=== PATIENT | female | born 1975 | race Caucasian/White ===

== ENCOUNTER 2017-05-08 09:40 | Emergency (ER) | payer BC ==
[2017-05-08 10:45] LABS: Hematocrit 42 % (35-47); Mean Corpuscular HGB Conc 34 g/dl (31-36); Mean Corpuscular Hemoglobin 31 pg (27-31); Mean Corpuscular Volume 92 fL (80-97); Mean Platelet Volume 9 um3 (7.4-10.4); Red Blood Count 4.53 10^6/ul (4.0-5.4); Red Cell Distribution Width 13 % (10.5-15); White Blood Count 7.8 10^3/ul (3.5-10.8)
[2017-05-08 11:08] LABS: BUN/Creatinine Ratio 7.1 (8-20); C Reactive Protein 1.61 mg/L (< 5.00); Calcium 9.2 mg/dL (8.6-10.3); EGFR Non-African American 91.8 (>60); Globulin 2.8 g/dL (2-4); Potassium 4.2 mmol/L (3.5-5.0); Total Bilirubin 1.1 mg/dL (0.2-1.0); Total Protein 6.8 g/dL (6.4-8.9)
[2017-05-08 11:14] LABS: Urine Bacteria 1+ (Absent); Urine Bilirubin Negative (Negative); Urine Glucose Negative (Negative); Urine Nitrite Negative (Negative)
[2017-05-08 12:11] VITALS: BP 129/76
--- NOTE | 2017-05-08 17:55 | ED ---
Pantera Wagner Claudia, scribed for Boston Lentz MD on 05/08/17 at 1004 . Neurological HPI - HPI Summary HPI Summary: 41 year old female presents to [facility] ED post Sz this am. Pt has a PMHx of Epilepsy , Narcolepsy, Asthma. The pt notes that she usually has absent Sz however this is her second Sz in which she experienced LOC. Pt notes the first being in late January. Pt notes that she and her just moved to [place] and are trying to get established with a Neurologist here but are having a difficult time with finding an appt before July 2017. Pt notes she takes Lamictal 200mg 2x a day for her Sz. Pt denies bitting her tongue, NVD, incontinence and any other associated Sz. Pt Sz was not witnessed and the exact length of the Sz is unknown. The pt notes that she felt it coming on and woke up on the floor. Pt also notes intermittent cough for the past year in which she has had XR and work -up within nml limits. Pt denies any aggravating or alleviating factors, pt states she is back to her nml state in the ED. - History of Current Complaint Chief Complaint: EDSeizure Stated Complaint: SEIZURE/SYNCOPE Time Seen by Provider: 05/08/17 09:53 Hx Obtained From: Patient Onset/Duration: Sudden Onset, Resolved Timing: Intermittent Episodes Lasting: - unsure lenth Pain Intensity: 0 Syncope Context: Unwitnessed, Loss of Consciousness: Yes Frequency: Episodes x___ - 1 Seizure Character: Tonic Associated Signs and Symptoms: Positive: Seizure. Negative: Nausea/Vomiting, Chest Pain, Shortness of Breath - Allergy/Home Medications Allergies/Adverse Reactions: Allergies Allergy/AdvReac Type Severity Reaction Status Date / Time No Known Allergies Allergy Verified 05/08/17 10:32 PMH/Surg Hx/FS Hx/Imm Hx Previously Healthy: Yes Endocrine/Hematology History: Reports: Hx Diabetes - DM type 1 Respiratory History: Reports: Hx Asthma, Other Respiratory Problems/Disorders - Narcolepsy Neurological History: Reports: Hx Seizures Infectious Disease History: No Infectious Disease History: Denies: Traveled Outside the [place] in Last 30 Days - Family History Known Family History: Positive: Other Family History: Pancreatic CA, Ovarian CA, Breast CA - Social History Occupation: Employed Full-time Lives: With Family Alcohol Use: Occasionally Hx Substance Use: No Substance Use Type: Reports: None Hx Tobacco Use: No Smoking Status (MU): Former Smoker Review of Systems Constitutional: Negative Eyes: Negative ENT: Negative Cardiovascular: Negative Negative: Chest Pain Positive: Cough. Negative: Shortness Of Breath Gastrointestinal: Negative Negative: Vomiting, Diarrhea, Nausea Genitourinary: Negative Negative: incontinence Musculoskeletal: Negative Skin: Negative Neurological: Other - Sz Psychological: Normal All Other Systems Reviewed And Are Negative: Yes Physical Exam - Summary Physical Exam Summary: VITAL SIGNS: Reviewed. GENERAL: Patient is a well-developed and nourished female who is lying comfortable in the stretcher. Patient is not in any acute respiratory distress. HEAD AND FACE: No signs of trauma. No ecchymosis, hematomas or skull depressions. No sinus tenderness. EYES: PERRLA, EOMI x 2, No injected conjunctiva, no nystagmus. EARS: Hearing grossly intact. Ear canals and tympanic membranes are within normal limits. MOUTH: Oropharynx within normal limits. NECK: Supple, trachea is midline, no adenopathy, no JVD, no carotid bruit, no c- spine tenderness, neck with full ROM. CHEST: Symmetric, no tenderness at palpation LUNGS: Clear to auscultation bilaterally. No wheezing or crackles. CVS: Regular rate and rhythm, S1 and S2 present, no murmurs or gallops appreciated. ABDOMEN: Soft, non-tender. No signs of distention. No rebound no guarding, and no masses palpated. Bowel sounds are normal. EXTREMITIES: FROM in all major joints, no edema, no cyanosis or clubbing. NEURO: Alert and oriented x 3. No acute neurological deficits. Speech is normal and follows commands. SKIN: Dry and warm Triage Information Reviewed: Yes Vital Signs On Initial Exam: Initial Vitals Temp Pulse Resp BP Pulse Ox 98.3 F 100 20 132/73 97 05/08/17 09:42 05/08/17 09:42 05/08/17 09:42 05/08/17 09:42 05/08/17 09:42 Vital Signs Reviewed: Yes Diagnostics - Vital Signs Vital Signs Temp Pulse Resp BP Pulse Ox 05/08/17 09:42 98.3 F 100 20 132/73 97 - Laboratory Lab Results: Lab Results 05/08/17 05/08/17 05/08/17 Range/Units 10:20 10:25 10:25 WBC 7.8 (3.5-10.8) 10^3/ul RBC 4.53 (4.0-5.4) 10^6/ul Hgb 14.0 (12.0-16.0) g/dl Hct 42 (35-47) % MCV 92 (80-97) fL MCH 31 (27-31) pg MCHC 34 (31-36) g/dl RDW 13 (10.5-15) % Plt Count 333 (150-450) 10^3/ul MPV 9 (7.4-10.4) um3 Neut % (Auto) 64.8 (38-83) % Lymph % (Auto) 22.6 L (25-47) % [place] % (Auto) 6.6 (1-9) % Eos % (Auto) 4.7 (0-6) % Baso % (Auto) 1.3 (0-2) % Absolute Neuts (auto) 5.0 (1.5-7.7) 10^3/ul Absolute Lymphs (auto) 1.8 (1.0-4.8) 10^3/ul Absolute Monos (auto) 0.5 (0-0.8) 10^3/ul Absolute Eos (auto) 0.4 (0-0.6) 10^3/ul Absolute Basos (auto) 0.1 (0-0.2) 10^3/ul Absolute Nucleated RBC 0 10^3/ul Nucleated RBC % 0.1 Sodium 134 (133-145) mmol/L Potassium 4.2 (3.5-5.0) mmol/L Chloride 101 (101-111) mmol/L Carbon Dioxide 27 (22-32) mmol/L Anion Gap 6 (2-11) mmol/L BUN 5 L (6-24) mg/dL Creatinine 0.70 (0.51-0.95) mg/dL Est GFR ( Amer) 118.0 (>60) Est GFR (Non-Af Amer) 91.8 (>60) BUN/Creatinine Ratio 7.1 L (8-20) Glucose 199 H (70-100) mg/dL Calcium 9.2 (8.6-10.3) mg/dL Total Bilirubin 1.10 H (0.2-1.0) mg/dL AST 12 L (13-39) U/L ALT 10 (7-52) U/L Alkaline Phosphatase 83 (34-104) U/L C-Reactive Protein 1.61 (< 5.00) mg/L Total Protein 6.8 (6.4-8.9) g/dL Albumin 4.0 (3.2-5.2) g/dL Globulin 2.8 (2-4) g/dL Albumin/Globulin Ratio 1.4 (1-3) Urine Color Yellow Urine Appearance Clear Urine pH 8.0 (5-9) Ur Specific [place] 1.014 (1.010-1.030) Urine Protein 1+(30 mg/dl) H (Negative) Urine Ketones Negative (Negative) Urine Blood Negative (Negative) Urine Nitrate Negative (Negative) Urine Bilirubin Negative (Negative) Urine Urobilinogen Negative (Negative) Ur Leukocyte Esterase Negative (Negative) Urine WBC (Auto) Trace(0-5/hpf) (Absent) Urine RBC (Auto) Trace(0-2/hpf) (Absent) Ur Squamous Epith Cells Present H (Absent) Urine Bacteria 1+ H (Absent) Urine Glucose Negative (Negative) Result Diagrams: 05/08/17 10:25 05/08/17 10:25 Lab Statement: Any lab studies that have been ordered have been reviewed, and results considered in the medical decision making process. - EKG 10:18 Cardiac Rate: NL EKG Rhythm: Sinus Rhythm - 85 beats/min ST Segment: Normal NIH Scale - NIH Scale Level of Consciousness: Alert/Keenly Responsive Ask Patient the Month and His/Her Age: Both Correct Ask Pt to Open/Close Eyes and Concession Cashier/Release Non-Paretic Hand: Both Correctly Best Gaze (Only Horizontal Eye Movement): Normal Visual Field Testing: No Visual Loss Facial Paresis-Pt to Smile & Close Eyes or Grimace Symmetry: Normal/Symmetrical Motor Function - Right Arm: No Drift-Holds 10 Seconds Motor Function - Left Arm: No Drift-Holds 10 Seconds Motor Function - Right Leg: No Drift-Holds 10 Seconds Motor Function - Left Leg: No Drift-Holds 10 Seconds Limb Ataxia-Must be out of Proportion to Weakness Present: Absent Sensory (Use Pinprick to Test Arms/Legs/Trunk/Face): Normal Best Language (Describe Picture, Name Items): No Aphasia Dysarthria (Read Several Words): Normal Extinction and Inattention: No Abnormality Total Score: 0 Course/Dx - Course Assessment/Plan: 41 year old female presents to [facility] ED post Sz this am. Pt has a PMHx of Epilepsy, Narcolepsy, Asthma. The pt notes that she usually has absent Sz however this is her second Sz in which she experienced LOC. Pt notes the first being in late January. Pt notes that she and her just moved to [place] and are trying to get established with a Neurologist here but are having a difficult time with finding an appt before July 2017. Pt notes she takes Lamictal 200mg 2x a day for her Sz. Pt denies bitting her tongue, NVD, incontinence and any other associated Sz. Pt Sz was not witnessed and the exact length of the Sz is unknown. The pt notes that she felt it coming on and woke up on the floor. Pt also notes intermittent cough for the past year in which she has had XR and work-up within nml limits. Pt denies any aggravating or alleviating factors, pt states she is back to her nml state in the ED. Blood work with in normal limits except glucose of 199 this is consist with her type 1 DM. Urine analysis neg for UTI. I discussed the case with dr. Romero whom recommends to increase her night time lamictal to 250mg. The pt will also be seeing Dr. Ibrahim on June 10. The pt was given a Rx for lamicatal 50mg sine the pt did not have 50mg pills. The pt is Hemodynamically stable Alert and Oriented x3. - Differential Dx Differential Diagnoses Neuro: Positive: Seizure Disorder - Diagnoses Provider Diagnoses: Seizure - Physician Notifications Discussed Care Of Patient With: Consulted with Dr. Romero, whom will see the pt in his office. - Dr. Romero also recommened increasing Lamictal to 250mg at night. Time Discussed With Above Provider: 11:31 Discharge - Discharge Plan Condition: Stable Disposition: HOME Prescriptions: lamoTRIgine TAB(*) [Lamictal TAB(*)] 50 mg PO BEDTIME #30 tab Patient Education Materials: Recurrent Seizures in Adults (ED) Referrals: Elvin Romero MD [Medical Doctor] - (Please follow-up with you appointment on May AT 10:30AM. ) The documentation as recorded by the Pantera angel Claudia accurately reflects the service I personally performed and the decisions made by me, Boston Lentz MD.
== END 2017-05-08 11:50 | disposition home or self-care (01) ==
LOC: ED 09:40
DX: R56.9 Unspecified convulsions (principal); R05 Cough; Z87.891 Personal history of nicotine dependence
CPT/HCPCS: 36415; 80053; 81003; 81015; 85025; 86140; 87086; 93005; 99282

== ENCOUNTER 2018-05-24 12:19 | Emergency (ER) | payer BC ==
[2018-05-24] MEDS ORDERED: NS 0.9% 1000 ML* 1,000 ML IV ONE (13:01)
--- NOTE | 2018-05-24 13:01 | ED ---
Throat Pain/Nasal Congestion - HPI Summary HPI Summary: This is scribe Chavo Johnsain documenting for attending Dr. Boston Lentz MD. A 42 y/o female presents to ED c/o slight double vision since waking up this morning around 0830. Currently, the patient is in no acute pain. According to the patient, she woke up this morning with her vision being in and out/double vision. She stated that the symptoms were not too apparent when she first woke up, but it became noticeable around 1000. She has noticed no changes in her health within the last couple days, however last night she woke up because she had high blood pressure of 350. She did have similar symptom when her blood pressure was low, but her symptoms today are for sure different. The symptoms are "getting better than getting worse". In the ED room, she could not tell if the TV was double, however, she noted that it is "not right" and that it is a little off (doesn't see two TV's). Using 's glasses which was turned horizontally and vertically the patient noted that they "off". She denies any headaches, SOB, CP, fever, chills, neck pain or infection within the last couple weeks, however, she has had a runny nose but that comes every morning. The runny nose goes away as she progresses through the day. In the ED room upon holding an instrument, her right eye was covered where she saw no change, however, when covering her left eye she still see double. She noted that she has been near sided since the 5th grade. Last time she saw a ammunition supervisor was in October 2017 where everything was good with no/slight change in prescriptions. Possible measurements of her eyes were -7 and -7.25 (not entirely sure). She continued to note that she always felt that her left eye was different than her right eye for years. She saw five ophthalmologists who all said there was nothing wrong with it, however, this past she felt it was especially bad to the point of where it kind of hurts. Current ammunition supervisor is Dr. Leggett. Doesn't have menstrual periods anymore. PMHx of epilepsy, narcolepsy, Type I DM (since 10 y/o, has insulin pump). Continuous glucose monitoring with current sugar is 158 and rising. Fundoscopic Exam: Exam was difficult to identify blood vessels. Eyes have more red buchanan color. - History of Current Complaint Chief Complaint: EDEyeProblem Time Seen by Provider: 05/24/18 12:40 Hx Obtained From: Patient Onset/Duration: Sudden Onset, Lasting Hours, Still Present Associated Signs And Symptoms: Positive: Negative Cough: None - Allergies/Home Medications Allergies/Adverse Reactions: Allergies Allergy/AdvReac Type Severity Reaction Status Date / Time No Known Allergies Allergy Verified 05/24/18 12:24 Home Medications: Home Medications Albuterol HFA INHALER* [Ventolin HFA Inhaler*] 1 - 2 puff INH Q6H PRN 05/24/18 [ History Confirmed 05/24/18] Armodafinil 150 mg PO DAILY 05/24/18 [History Confirmed 05/24/18] Dextroamphetamine/Amphetamine [Adderall 5 mg Tablet] 5 mg PO DAILY 05/24/18 [ History Confirmed 05/24/18] Insulin Aspart [Novolog] 1 unit SUBCUT DAILY 05/24/18 [History Confirmed ] lamoTRIgine TAB(*) [Lamictal TAB(*)] 100 mg PO BEDTIME 05/24/18 [History Confirmed 05/24/18] lamoTRIgine [Lamotrigine ER] 200 mg PO BID 05/24/18 [History Confirmed 05/24/18] PMH/Surg Hx/FS Hx/Imm Hx Endocrine/Hematology History: Reports: Hx Diabetes - DM type 1 Cardiovascular History: Denies: Hx Hypertension, Hx Pacemaker/ICD Respiratory History: Reports: Hx Asthma, Other Respiratory Problems/Disorders - Narcolepsy History: Denies: Hx Renal Disease Sensory History: Denies: Hx Hearing Aid Neurological History: Reports: Hx Seizures Psychiatric History: Denies: Hx Panic Disorder - Surgical History Surgery Procedure, Year, and Place: HYSTERECTOMY Infectious Disease History: No Infectious Disease History: Denies: Traveled Outside the [place] in Last 30 Days - Family History Known Family History: Positive: Diabetes Negative: Hypertension Family History: Pancreatic CA, Ovarian CA, Breast CA - Social History Alcohol Use: Occasionally Alcohol Amount: socially Hx Substance Use: No Substance Use Type: Reports: None Hx Tobacco Use: No Smoking Status (MU): Former Smoker Review of Systems Positive: Other - NEGATIVE: Infection in past couple weeks.. Negative: Fever, Chills Positive: Blurred Vision - In the morning around 0830 upon waking up., Other - POSITIVE: Double vision. ENT: Other - POSITIVE: Runny nose (normal, everyday). Resolves during day. Negative: Chest Pain Negative: Shortness Of Breath Positive: Other - NEGATIVE: Neck pain. Negative: Headache All Other Systems Reviewed And Are Negative: Yes Physical Exam - Summary Physical Exam Summary: VITAL SIGNS: Reviewed. GENERAL: Patient is a well-developed and nourished female who is lying comfortable in the stretcher. Patient is not in any acute respiratory distress. HEAD AND FACE: No signs of trauma. No ecchymosis, hematomas or skull depressions. No sinus tenderness. EYES: PERRLA, EOMI x 2, No injected conjunctiva, no nystagmus. EARS: Hearing grossly intact. Ear canals and tympanic membranes are within normal limits. MOUTH: Oropharynx within normal limits. NECK: Supple, trachea is midline, no adenopathy, no JVD, no carotid bruit, no c- spine tenderness, neck with full ROM. CHEST: Symmetric, no tenderness at palpation LUNGS: Clear to auscultation bilaterally. No wheezing or crackles. CVS: Regular rate and rhythm, S1 and S2 present, no murmurs or gallops appreciated. ABDOMEN: Soft, non-tender. No signs of distention. No rebound no guarding, and no masses palpated. Bowel sounds are normal. EXTREMITIES: FROM in all major joints, no edema, no cyanosis or clubbing. NEURO: Alert and oriented x 3. No acute neurological deficits. Speech is normal and follows commands. SKIN: Dry and warm NIH: 0 GCS: 15 Triage Information Reviewed: Yes Vital Signs On Initial Exam: Initial Vitals Temp Pulse Resp BP Pulse Ox 99.7 F 107 15 150/80 99 05/24/18 12:22 05/24/18 12:22 05/24/18 12:22 05/24/18 12:22 05/24/18 12:22 Vital Signs Reviewed: Yes Diagnostics - Vital Signs Vital Signs Temp Pulse Resp BP Pulse Ox 05/24/18 12:22 99.7 F 107 15 150/80 99 - Laboratory Result Diagrams: 05/24/18 13:07 05/24/18 13:07 Lab Statement: Any lab studies that have been ordered have been reviewed, and results considered in the medical decision making process. - CT BRAIN CT CT Interpretation Completed By: Radiologist - Negative examination. ED physician reviewed this radiology report. HEAD CTA CT Interpretation Completed By: Radiologist - NEGATIVE EXAMINATION. NO CT EVIDENCE OF ANEURYSM, STENOSIS, OR BRANCH OCCLUSION. ED PHYSICIAN REVIEWED THIS RADIOLOGY REPORT. - EKG 1309 Cardiac Rate: NL - 90 BPM EKG Rhythm: Sinus Rhythm EKG Interpretation: No ST elevation. Normal axis. Re-Evaluation - Re-Evaluation First Eval Re-Evaluation Time: 14:20 Comment: Dr. Nails recommended CTA HEAD. Order for CTA HEAD is done. He is consulting with [facility]. Patient is hemodynamically stable and alert/oriented x3. Second Eval Re-Evaluation Time: 16:25 Comment: Dr. Nails spoke with [facility] who decided against TPA as there is no certainty in the time of onset. Third Eval Re-Evaluation Time: 16:58 Comment: Patient is feeling better. Dr. Nails talked to Dr. Jeter which found the Brain MRI to be negative. EENT Course/Dx - Course Assessment/Plan: This patient is a 42-year-old female who presents to the emergency department with with a chief complaint of having double vision. She reports that this morning when she woke up at 8:30 AM she noticed that she had diplopia. She also reports that approximately 10:30 AM the symptoms worsen. Patient denies any eye pain, denies any increased tearing, denies any itching of the eyes. the patient denies any headache, denies any neck pain, denies any fevers or chills. Patient also reports no history of upper respiratory tract infections. patient has past medical history significant for Epilepsy, insulin-dependent diabetes, and asthma. During the physical exam I'm unable to determine if the patient has a monocular diplopia or bilateral diplopia. patient has bilateral injected conjunctiva, denies pain , has good lubrication of both eyes, there is no discharge, however the funduscopic exam was very difficult. The was difficult to see any of the blood vessels. The back redness chooses with erythema and a buchanan color pigmentation. Head CT impression: No acute interconnected pathology. At this time I discussed the case with Dr. Nails who came and assessed the patient. He reported that there is no TPA that this time as just is not a good onset of symptoms. He recommended immediate to go as CTA : Head and neck. They impression shows a negative examination. No CT evidence of aneurysm or stenosis or branch occlusion. He recommended for the patient to get an MRI and the patient shows and Arnold-Chiari malformation. No acute intracranial findings. At this time Dr. Nails recommends for the patient to be discharged home with follow-up with his office in the next couple weeks and also to follow- up with an neuro ammunition supervisor. The patient with Evelio an appointment with the neuro-ammunition supervisor from [place] as needed. At this point the patient reports that she is feeling better. She reports that the BiPAP is getting improvement. Therefore the patient will be discharged home with follow-up with primary care physician, Dr. Nails and the neuro-ammunition supervisor that she would make an appointment with. She was recommended that if she develops any other symptoms, or similar symptoms she [facility] and management. - Differential Diagnoses Differential Diagnoses: Cluster Headache, Other - CVA, TIA, retinal artery or vein occlusion - Diagnoses Provider Diagnoses: Diplopia - Provider Notifications Discussed Care Of Patient With: Mik Nails Time Discussed With Above Provider: 13:05 Instructed by Provider To: Other - Will come and see patient. Discharge - Sign-Out/Discharge Documenting (check all that apply): Patient Departure - DISCHARGE - Discharge Plan Condition: Stable Disposition: HOME Patient Education Materials: Diplopia (ED) Referrals: Mik Nails MD [Medical Doctor] - 3 Days Leoncio Amaya MD [Primary Care Provider] - 1 Week Additional Instructions: FOLLOW UP WITH NEURO-OPHTHALMOLOGY WITHIN 3 DAYS. FOLLOW UP WITH YOUR PRIMARY CARE PROVIDER WITHIN ONE WEEK FOR HIGH BLOOD PRESSURE NOTED TODAY. RETURN TO THE ED FOR ANY WORSENING OR NEW SYMPTOMS. - Billing Disposition and Condition Condition: STABLE Disposition: Home NIH Scale - NIH Scale Level of Consciousness: Alert/Keenly Responsive Ask Patient the Month and His/Her Age: Both Correct Ask Pt to Open/Close Eyes and [place] Department Manager/Release Non-Paretic Hand: Both Correctly Best Gaze (Only Horizontal Eye Movement): Normal Visual Field Testing: No Visual Loss Facial Paresis-Pt to Smile & Close Eyes or Grimace Symmetry: Normal/Symmetrical Motor Function - Right Arm: No Drift-Holds 10 Seconds Motor Function - Left Arm: No Drift-Holds 10 Seconds Motor Function - Right Leg: No Drift-Holds 10 Seconds Motor Function - Left Leg: No Drift-Holds 10 Seconds Limb Ataxia-Must be out of Proportion to Weakness Present: Absent Sensory (Use Pinprick to Test Arms/Legs/Trunk/Face): Normal Best Language (Describe Picture, Name Items): No Aphasia Dysarthria (Read Several Words): Normal Extinction and Inattention: No Abnormality Total Score: 0
--- NOTE | 2018-05-24 13:48 | RAD ---
INDICATION: Diplopia. History of seizure. History of Arnold-Chiari malformation. COMPARISON: MRI brain November 07, 2016 TECHNIQUE: Noncontrast axial source images were acquired from the skull base to the vertex. FINDINGS: Ventricles/sulci: The ventricles and cisterns are normal in size and configuration for age. Brain parenchyma: There is no focal parenchymal finding, evidence of intracranial mass, or intracranial mass effect. Intracranial hemorrhage:None. Extra-axial spaces: There are no abnormal extra axial fluid collections or evidence of extra-axial mass. Calvarium: There is no calvarial fracture or other calvarial abnormality. The patient has a known Chiari malformation better documented on MR imaging Scalp: There is no evidence of scalp or extracalvarial soft tissue abnormality. Paranasal sinuses/mastoid: The paranasal sinuses and mastoid air cells are clear. Other: None. IMPRESSION: NEGATIVE EXAMINATION
[2018-05-24] MEDS ORDERED: Aspirin TAB* 325 MG PO ONE (14:07)
[2018-05-24 14:08] LABS: ABS Basophils 0.1 10^3/ul (0-0.2); ABS Eosinophils 0.2 10^3/ul (0-0.6); ABS Lymphocytes 1.5 10^3/ul (1.0-4.8); ABS Monocytes 0.6 10^3/ul (0-0.8); ABS Neutrophils 5.9 10^3/ul (1.5-7.7); ABS Nucleated RBC 0 10^3/ul; Hematocrit 39 % (35-47); Hemoglobin 13.3 g/dl (12.0-16.0); Lymphocyte % 18.3 % (25-47); Mean Corpuscular HGB Conc 34 g/dl (31-36); Mean Corpuscular Hemoglobin 31 pg (27-31); Mean Corpuscular Volume 91 fL (80-97); Mean Platelet Volume 8.3 um3 (7.4-10.4); Nucleated Red Blood Cells % 0; Platelet Count 336 10^3/ul (150-450); Red Blood Count 4.26 10^6/ul (4.00-5.40); Red Cell Distribution Width 13 % (10.5-15); White Blood Count 8.2 10^3/ul (3.5-10.8)
[2018-05-24] MEDS ORDERED: Aspirin 81 mg CHEW TAB* 81 MG TAB.CHEW PO ONE (14:08)
[2018-05-24] MEDS ORDERED: Aspirin 81 mg CHEW TAB* 81 MG TAB.CHEW ONE (14:09)
[2018-05-24] MEDS ORDERED: Alteplase* 100 MG VIAL ONE (14:14)
[2018-05-24] MEDS ORDERED: Iodixanol* (CONTRAST) 320 MG/ML 100 ML SDV IV ONE (14:23)
[2018-05-24 14:27] LABS: EGFR Non-African American 96.1 (>60)
[2018-05-24 14:31] LABS: INR 0.94 (0.77-1.02)
--- NOTE | 2018-05-24 15:02 | RAD ---
INDICATION: Diplopia COMPARISON: CT brain same date; MRI brain August 28, 2017 TECHNIQUE: Axial source images were acquired with coronal and sagittal reconstructions. CT angiographic technique was utilized with injection of 80 mL Visipaque 320. FINDINGS: Aortic arch: There are no CT angiogram abnormalities of the arch or the great vessels arising from the arch. Right carotid: The common carotid artery, carotid bifurcation, extracranial portions of the internal carotid artery, carotid artery at the skull base, carotid siphon, and carotid termination appear normal. Left carotid:The common carotid artery, carotid bifurcation, extracranial portions of the internal carotid artery, carotid artery at the skull base, carotid siphon, and carotid termination appear normal. Right middle and anterior cerebral arteries: There are no CT angiographic abnormalities of the middle or anterior cerebral arteries. Left middle and anterior cerebral arteries: There are no CT angiographic abnormalities of the middle or anterior cerebral arteries Right vertebral: The CT angiographic appearance of the vertebral artery is normal. Left vertebral: The CT angiographic appearance of the vertebral artery is normal. Basilar artery: The basilar artery and basilar tip appear normal. Posterior cerebral arteries: The distal distribution of the right and left posterior cerebral arteries is normal. [place] of [place]: The CT angiographic appearance of the [place] is normal. Source images show no evidence of mass or adenopathy within the neck. There are no focal brain parenchymal abnormalities or abnormal areas of enhancement. IMPRESSION: NEGATIVE EXAMINATION. NO CT EVIDENCE OF ANEURYSM, STENOSIS, OR BRANCH OCCLUSION CPT II Codes: 3100F [facility]
--- NOTE | 2018-05-24 16:56 | RAD ---
INDICATION: Evaluate for CVA. Diplopia. COMPARISON: CT brain same date; MRI August 28, 2017; CTA head and neck same date TECHNIQUE: sagittal T1 FLAIR, axial diffusion, axial T1 FLAIR, axial T2, axial T2 FLAIR, and SWI images were acquired. FINDINGS: Craniocervical junction: The craniocervical junction appears unchanged. There is pointing the cerebellar tonsils with elongation of the fourth ventricle compatible with Chiari malformation. Ventricles/sulci: The ventricles and cisterns are normal in size and configuration for age. Brain parenchyma: There are no focal parenchymal abnormalities. There is no evidence of intracranial mass or mass effect. The diffusion weighted images show no evidence of acute ischemia. Intracranial hemorrhage: There is no intracranial hemorrhage. Extra-axial spaces: There are no extra-axial fluid collections or masses. Orbits: There are no MR abnormalities of the orbital structures. Paranasal sinuses/mastoid: The paranasal sinuses are clear. The mastoid air cells are well aerated.. Vascular: No abnormalities are seen. Other: None IMPRESSION: ARNOLD-CHIARI MALFORMATION. NO ACUTE INTRACRANIAL FINDINGS or interval changes
[2018-05-24 17:46] VITALS: BP 110/68
== END 2018-05-24 17:51 | disposition home or self-care (01) ==
LOC: ED 12:19
DX: H53.2 Diplopia (principal); H53.8 Other visual disturbances; Z87.891 Personal history of nicotine dependence; E10.9 Type 1 diabetes mellitus without complications
CPT/HCPCS: 36415; 70450; 70496; 70498; 70551; 80053; 83605; 84484; 85025; 85610; 86140; 93005; 99285; A9270-GY; J2997; Q9967

== ENCOUNTER 2019-04-15 12:39 | Emergency (ER) | payer BC ==
--- OUTSIDE RECORDS SUMMARY | 2019-04-15 12:55 | XMS REPORT | Continuity of Care Document ---
:1975 External Reference #:[id number] Author Name Long Parsons Care Team Providers Name Role Phone Jan,Smitha SLIPPER MAKER Primary Care Physician Unavailable Payers Date Identification Numbers Payment Provider Subscriber Policy Number: [id number] [facility] Blanca De Paz PayID: [id number] [address] [place] [address] Problems Active Problems Provider Date Type 1 diabetes mellitus Leoncio Amaya M.D.,FACP Onset: 07/12/2017 Note: since age 9 Complex partial epileptic seizure Elvin Romero MD Onset: 06/10/2017 Narcolepsy Elvin Romero MD Onset: 06/10/2017 H/O: hysterectomy Leoncio Amaya M.D.,FACP Onset: 07/12/2017 Cough variant asthma Leoncio Amaya M.D.,FACP Onset: 07/12/2017 Spina bifida without hydrocephalus Elvin Romero MD Onset: 08/05/2017 Chiari malformation type I Leoncio Amaya M.D.,FACP Onset: 08/22/2017 Note: MRI confirmed Epilepsy Elvin Romero MD Onset: 05/06/2018 Family History Date Family Member(s) Observation Comments General Diabetes General Hypertension Father Skin Cancer Mother Alive And Well Siblings 1 brother. Maternal Grandfather due to Pancreatic Cancer () Maternal Grandmother due to Breast Cancer () Social History Type Date Description Comments Sex Unknown Marital Status 07/12/2017 Lives With 07/12/2017 Occupation Currently Working [employer] Tobacco Use Start: Unknown End: Former Cigarette Unknown Smoker Smoking Status Reviewed: 04/08/19 Former Cigarette Smoker ETOH Use Drinks 4 Alcoholic Beverages Per Week Tobacco Use Start: Unknown End: Patient is a former Unknown smoker Recreational Drug Use 07/12/2017 Denies Drug Use Exercise Type/Frequency Exercises regularly walk Currently Active Patient is currently sexually active Allergies, Adverse Reactions, Alerts Description No Known Drug Allergies Medications Active Medications SIG Qnty Indications Ordering Provider Date Lamotrigine 1 tablet by 90tabs G40.209 Elvin Romero MD 08/05/2017 100mg mouth every pm. Tablets Ventolin HFA 2 puffs by mouth 18units Leoncio Jacobs 07/12/2017 four times a day Mike Amaya,FACP 108(90Base) mcg/Act as needed Aerosol Lamotrigine ER take 1 by mouth G40.209 Elvin Romero MD 06/10/2017 200mg twice a day Tablets ER 24HR Calcium 1 by mouth daily Unknown 500mg Tablets Vitamin B12 1 by mouth every Unknown 1000mcg day Tablets ER Aspirin 81 Low Dose 1 by mouth every Unknown day 81mg Chewtabs Armodafinil take 1 tablet by 90tabs Elvin Romero MD 150mg mouth every day Tablets code e Clonazepam 1 by mouth as Unknown 0.5mg needed for sleep Tablets Novolog Insulin pump Unknown 100Unit/ML Solution Vitamin D2 take 1 capsule Unknown (Ergocalciferol) by mouth once a day 1000Units Capsules Adderall one by mouth 180tabs G47.419 Elvin Romero MD 5mg Tablets twice a day code e History Medications Tramadol 1 tab by mouth 15tabs Carmen 11/20/2018 - Hydrochloride/Acetaminophen every 4-6 Mike Mosher 12/31/2017 37.5-325mg hours as Tablets needed pain Arnuity Ellipta 1 puff inhaled 30units J45. Leoncio Jacobs 07/12/2017 - 100mcg/Act Aerosol every day 40 Monique 12/17/2017 Mike,FACP Lamotrigine 2 in at night 120tabs Elvin 06/11/2017 - 25mg Tablets Dispers for 2 weeks MD Heather 06/11/2017 then 4 in at night Lamotrigine 2 in at night 120tabs G40. Elvin 06/10/2017 - 25mg Tablets Dispers for 2 weeks 209 MD Heather 08/05/2017 then 4 in at night Lamotrigine ER take 1 by Unknown - 200mg Tablets ER 24HR mouth twice a 06/11/2017 day Vitamin B12 1 by mouth Unknown - 5000mcg Tablets ER every day 12/17/2017 Albuterol Sulfate 1 vial via Unknown - (2.5mg/3ML) 0.083% nebulizer 4 07/12/2017 Nebulizer times daily as needed Vitamin E-200 1 by mouth Unknown - 5000Units Capsules every day 12/31/2017 Calcium 500 + D3 2 tabs by Unknown - [id number] Tablets mouth every 04/08/2019 day Medications Administered in Office Medication SIG Qnty Indications Ordering Provider Date Depomedrol 40MG URBAN Benson 05/08/2018 Injection Immunizations CPT Code Status Date Vaccine Reaction Lot # [id number] Given 12/18/2017 Pneumococcal Conjugate [id number] Vaccine 13 Valent For Intramuscular Use 76248 Given 07/12/2017 Influenza Virus Vaccine, no immediate reaction, [id number] Quadrivalent, Split, pt tolerated well Preservative Free 94377 Given 04/07/2015 Pneumonia Vaccine Vital Signs Date Vital Result Comment 04/08/2019 7:54am Height 72 inches 6'0" Weight 222.00 lb Heart Rate 91 /min BP Systolic 111 mmHg BP Diastolic 75 mmHg Body Temperature 97.5 F O2 % BldC Oximetry 97 % BMI (Body Mass Index) 30.1 kg/m2 04/02/2019 9:37am Height 72 inches 6'0" Weight 215.00 lb Heart Rate 84 /min BP Systolic 120 mmHg BP Diastolic 76 mmHg Respiratory Rate 18 /min Pain Level 4 BMI (Body Mass Index) 29.2 kg/m2 01/28/2019 8:11am Height 72 inches 6'0" Heart Rate 80 /min BP Systolic 122 mmHg BP Diastolic 70 mmHg Respiratory Rate 16 /min Body Temperature 97.3 F Pain Level 0 01/12/2019 8:14am Height 72 inches 6'0" Weight 216.00 lb w/ shoes Heart Rate 94 /min BP Systolic Sitting 114 mmHg BP Diastolic Sitting 75 mmHg BMI (Body Mass Index) 29.3 kg/m2 12/31/2018 10:38am Height 72 inches 6'0" Weight 213.00 lb Heart Rate 78 /min BP Systolic Sitting 120 mmHg BP Diastolic Sitting 76 mmHg BMI (Body Mass Index) 28.9 kg/m2 12/31/2018 9:12am Height 72 inches 6'0" Heart Rate 72 /min BP Systolic 114 mmHg BP Diastolic 58 mmHg Body Temperature 97.7 F Pain Level 5 12/24/2018 8:35am Height 70 inches 5'10" Weight 215.00 lb Heart Rate 85 /min BP Systolic 124 mmHg BP Diastolic 78 mmHg Body Temperature 9.2 F O2 % BldC Oximetry 98 % BMI (Body Mass Index) 30.8 kg/m2 12/11/2018 8:01am Height 70 inches 5'10" Weight 215.00 lb BP Systolic 110 mmHg BP Diastolic 62 mmHg Respiratory Rate 15 /min Body Temperature 94.4 F Pain Level 2 BMI (Body Mass Index) 30.8 kg/m2 11/13/2018 8:10am Height 70 inches 5'10" Weight 215.00 lb BP Systolic 110 mmHg BP Diastolic 62 mmHg Respiratory Rate 16 /min Body Temperature 96.2 F Pain Level 2 BMI (Body Mass Index) 30.8 kg/m2 10/09/2018 1:31pm Height 70 inches 5'10" Weight 210.00 lb w/ shoes Heart Rate 97 /min BP Systolic 125 mmHg BP Diastolic 72 mmHg BMI (Body Mass Index) 30.1 kg/m2 05/08/2018 8:31am Height 70 inches 5'10" Weight 216.50 lb Heart Rate 68 /min BP Systolic 118 mmHg BP Diastolic 70 mmHg Respiratory Rate 12 /min Body Temperature 97.8 F Pain Level 6 BMI (Body Mass Index) 31.1 kg/m2 05/06/2018 9:50am Height 70 inches 5'10" Weight 216.00 lb Heart Rate 80 /min BP Systolic Sitting 100 mmHg BP Diastolic Sitting 66 mmHg BMI (Body Mass Index) 31.0 kg/m2 12/18/2017 8:04am Height 70 inches 5'10" Weight 219.38 lb Heart Rate 94 /min BP Systolic 120 mmHg BP Diastolic 50 mmHg Body Temperature 97.4 F O2 % BldC Oximetry 98 % BMI (Body Mass Index) 31.5 kg/m2 11/05/2017 10:08am Height 70 inches 5'10" Weight 218.38 lb Heart Rate 76 /min BP Systolic 122 mmHg BP Diastolic 80 mmHg BMI (Body Mass Index) 31.3 kg/m2 08/05/2017 10:17am Height 70 inches 5'10" Weight 217.38 lb Heart Rate 80 /min BP Systolic 110 mmHg BP Diastolic 82 mmHg BMI (Body Mass Index) 31.2 kg/m2 07/12/2017 12:40pm Height 70 inches 5'10" Weight 219.50 lb Heart Rate 80 /min BP Systolic 118 mmHg BP Diastolic 70 mmHg Body Temperature 98.4 F O2 % BldC Oximetry 97 % BMI (Body Mass Index) 31.5 kg/m2 06/10/2017 10:36am Height 70 inches 5'10" Weight 218.00 lb Heart Rate 78 /min BP Systolic Sitting 118 mmHg BP Diastolic Sitting 72 mmHg Respiratory Rate 16 /min BMI (Body Mass Index) 31.3 kg/m2 Results Test Date Facility Test Result H/L Range Note Comp Metabolic Panel 01/15/2019 [facility] Sodium 139 mmol/L N 135-145 [address] [place] [address] [phone] Potassium 4.5 mmol/L N 3.5-5.0 Chloride 102 mmol/L N 101-111 Co2 Carbon Dioxide 32 mmol/L N 22-32 Anion Gap 5 mmol/L N 2-11 Glucose 163 mg/dL High 70-100 Blood Urea Nitrogen 11 mg/dL N 6-24 Creatinine 0.73 mg/dL N 0.51-0.95 BUN/Creatinine Ratio 15.1 N 8-20 Calcium 9.6 mg/dL N 8.6-10.3 Total Protein 6.7 g/dL N 6.4-8.9 Albumin 4.3 g/dL N 3.2-5.2 Globulin 2.4 g/dL N 2-4 Albumin/Globulin Ratio 1.8 N 1-3 Total Bilirubin 0.50 mg/dL N 0.2-1.0 Alkaline Phosphatase 110 U/L High 34-104 Alt 13 U/L N 7-52 Ast 16 U/L N 13-39 Egfr Non- 86.6 >60 Egfr 104.8 >60 1 Lipid Profile 01/15/2019 [facility] Triglycerides 56 mg/dL 2 (Trig/Chol/HDL) [address] [place] [address] [phone] Cholesterol 180 mg/dL 3 HDL Cholesterol 60.0 mg/dL 4 LDL Cholesterol 109 mg/dL 5 CBC Auto Diff 01/15/2019 [facility] White Blood 7.6 10^3/uL N 3.5-10.[address] [place] [address] [phone] Red Blood Count 4.51 10^6/uL N 3.70-4.87 Hemoglobin 14.0 g/dL N 12.0-16.0 Hematocrit 41 % N 33-41 Mean Corpuscular Volume 91 fL N 80-97 Mean Corpuscular Hemoglobin 31 pg N 27-31 Mean Corpuscular HGB Conc 34 g/dL N 31-36 Red Cell Distribution Width 13 % N 10.5-15 Platelet Count 400 10^3/uL N 150-450 Mean Platelet Volume 8.1 fL N 7.4-10.4 Abs Neutrophils 5.0 10^3/uL N 1.5-7.7 Abs Lymphocytes 1.7 10^3/uL N 1.0-4.8 Abs Monocytes 0.6 10^3/uL N 0-0.8 Abs Eosinophils 0.2 10^3/uL N 0-0.6 Abs Basophils 0.1 10^3/uL N 0-0.2 Abs Nucleated RBC 0 10^3/uL Granulocyte % 65.9 % Lymphocyte % 22.7 % Monocyte % 7.3 % Eosinophil % 3.0 % Basophil % 1.1 % Nucleated Red Blood Cells % 0 Laboratory test finding 01/12/2019 [facility] Glucose Random 182 Hemoglobin A1c 6.9 5-7 Laboratory test 12/02/2018 [facility] Point of Care 192 mg/dL High 70-100 [address] [place] [address] [phone] Laboratory test 12/02/2018 [facility] Point of Care 223 mg/dL High 70-100 [address] [place] [address] [phone] Laboratory test 12/02/2018 [facility] Point of Care 234 mg/dL High 70-100 [address] [place] [address] [phone] Laboratory test 11/28/2018 [facility] Lamotrigine 9.6 2.5 - 15.[address] (Lamictal) g/[place] [address] [phone] Laboratory test 10/09/2018 [facility] Glucose Random 224 finding Hemoglobin A1c 6.8 5-7 Laboratory test 05/24/2018 [facility] C Reactive < 1.00 mg/L N <8.[address] [place] [address] [phone] Troponin-I (TnI) 0.01 ng/mL <0.04 Lactic Acid 1.0 mmol/L N 0.5-2.0 10 Comp Metabolic Panel 05/24/2018 [facility] Sodium 135 mmol/L N 135-[address] [place] [address] [phone] Potassium 3.7 mmol/L N 3.5-5.0 Chloride 100 mmol/L Low 101-111 Co2 Carbon Dioxide 27 mmol/L N 22-32 Anion Gap 8 mmol/L N 2-11 Glucose 155 mg/dL High 70-100 Blood Urea Nitrogen 9 mg/dL N 6-24 Creatinine 0.67 mg/dL N 0.51-0.95 BUN/Creatinine Ratio 13.4 N 8-20 Calcium 8.8 mg/dL N 8.6-10.3 Total Protein 6.8 g/dL N 6.4-8.9 Albumin 4.0 g/dL N 3.2-5.2 Globulin 2.8 g/dL N 2-4 Albumin/Globulin Ratio 1.4 N 1-3 Total Bilirubin 0.60 mg/dL N 0.2-1.0 Alkaline Phosphatase 82 U/L N 34-104 Alt 9 U/L N 7-52 Ast 10 U/L Low 13-39 Egfr Non- 96.1 >60 Egfr 116.2 >60 11 Inr/Protime 05/24/2018 [facility] Inr 0.94 N 0.77-1.[address] [place] [address] [phone] CBC Auto Diff 05/24/2018 [facility] White Blood 8.2 10^3/uL N 3.5-10.[address] [place] [address] [phone] Red Blood Count 4.26 10^6/uL N 4.00-5.40 Hemoglobin 13.3 g/dL N 12.0-16.0 Hematocrit 39 % N 35-47 Mean Corpuscular Volume 91 fL N 80-97 Mean Corpuscular Hemoglobin 31 pg N 27-31 Mean Corpuscular HGB Conc 34 g/dL N 31-36 Red Cell Distribution Width 13 % N 10.5-15 Platelet Count 336 10^3/uL N 150-450 Mean Platelet Volume 8.3 um3 N 7.4-10.4 Abs Neutrophils 5.9 10^3/uL N 1.5-7.7 Abs Lymphocytes 1.5 10^3/uL N 1.0-4.8 Abs Monocytes 0.6 10^3/uL N 0-0.8 Abs Eosinophils 0.2 10^3/uL N 0-0.6 Abs Basophils 0.1 10^3/uL N 0-0.2 Abs Nucleated RBC 0 10^3/uL Granulocyte % 71.9 % N 38-83 Lymphocyte % 18.3 % Low 25-47 Monocyte % 6.8 % N 0-7 Eosinophil % 2.0 % N 0-6 Basophil % 1.0 % N 0-2 Nucleated Red Blood Cells % 0 Arthritis Panel 05/08/2018 [facility] Uric Acid 3.1 mg/dL N 2.3-6.[place] [address] [phone] Rheumatoid Factor < 10 IU/mL N <15 Erythrocyte Sed Rate 12 mm/Hr N 0-14 Anti-Nuclear Antibody 0.2 U 12 Cyclic Citrullinated Peptide <15.6 U 13 Interpretation See Comment 14 Laboratory test 05/08/2018 [facility] Lyme Disease Negative Negative 15 finding [address] [place] [address] [phone] Laboratory test 05/06/2018 [facility] TSH (Thyroid 0.97 mcIU/mL N 0.34-5.60 finding Mobile Pulse Stim [place]) [place] [address] [phone] Free T4 (Free Thyroxine) 1.00 ng/dL N 0.61-1.12 Laboratory test 05/06/2018 [facility] Lamotrigine 10.9 g/mL 2.5 - 16 finding Mobile Pulse (Lamictal) 15.0 [place] [address] [phone] Laboratory test 12/18/2017 [facility] Cytology SEE RESULT [address] [place] [address] [phone] Laboratory test 08/22/2017 [facility] Lamotrigine 10.2 g/mL N 2.5 - [address] (Lamictal) 15.0 [place] [address] [phone] Comp Metabolic 08/22/2017 [facility] Sodium 136 mmol/L N 133- [address] [place] [address] [phone] Potassium 4.3 mmol/L N 3.5-5.0 Chloride 102 mmol/L N 101-111 Co2 Carbon Dioxide 29 mmol/L N 22-32 Anion Gap 5 mmol/L N 2-11 Glucose 217 mg/dL High 70-100 Blood Urea Nitrogen 6 mg/dL N 6-24 Creatinine 0.74 mg/dL N 0.51-0.95 BUN/Creatinine Ratio 8.1 N 8-20 Calcium 9.2 mg/dL N 8.6-10.3 Total Protein 6.8 g/dL N 6.4-8.9 Albumin 4.1 g/dL N 3.2-5.2 Globulin 2.7 g/dL N 2-4 Albumin/Globulin Ratio 1.5 N 1-3 Total Bilirubin 0.80 mg/dL N 0.2-1.0 Alkaline Phosphatase 79 U/L N 34-104 Alt 11 U/L N 7-52 Ast 11 U/L Low 13-39 Egfr Non- 85.7 N >60 Egfr 110.2 N >60 19 Lipid Profile 08/22/2017 [facility] Triglycerides 69 mg/dL N 20 (Trig/Chol/HDL) [address] [place] [address] [phone] Cholesterol 151 mg/dL N 21 HDL Cholesterol 44.3 mg/dL N 22 LDL Cholesterol 93 mg/dL N 23 Urine Microalbumin 08/22/2017 [facility] Ur Microalbumin < 15.0 N Random [address] (mg/L) mg/[place] [address] [phone] Urine Creatinine 221.12 mg/dL N Urine Microalbumin/Creatinine TNP ug/mg N <31 24 Laboratory test 08/22/2017 [facility] Hemoglobin A1c 7.0 % High 4.0-5.6 25 finding 101 [facility] (Glyco HGB) [place] [address] [phone] Vitamin D Total 25(Oh) 55.7 ng/mL High 20-50 26 Vitamin B12 > 1450 pg/mL High 180-914 27 1 Because ethnic data is not always readily available, this report includes an eGFR for both -Americans and non- Americans. The National Kidney Disease Education Program (NKDEP) does not endorse the use of the MDRD equation for patients that are not between the ages of 18 and 70, are , have extremes of body size, muscle mass, or nutritional status, or are non- or non-. According to the National Kidney Foundation, irrespective of diagnosis, the stage of the disease is based on the level of kidney function: Stage Description GFR(mL/min/1.73 m(2)) 1 Kidney damage with normal or decreased GFR 90 2 Kidney damage with mild decrease in GFR 60-89 3 Moderate decrease in GFR 30-59 4 Severe decrease in GFR 15-29 5 Kidney failure <15 (or dialysis) 2 Desirable: <150 Borderline High: 150-199 High: 200-499 Very High: >500 3 Desirable: <200 Borderline High: 200-239 High: >239 4 Low: <40 Desirable: 40-60 High: >60 5 Desirable: <100 Near Optimal: 100-129 Borderline High: 130-159 High: 160-189 Very High: >189 6 Babbitt Spinner: [id number] Babbitt Spinner: [id number] Babbitt Spinner: [id number] ADDITIONAL INFORMATION This test was developed and its performance characteristics determined by [facility] in a manner consistent with CLIA requirements. This test has not been cleared or approved by the U.S. Food and Drug Administration. Test Performed by: [facility] - [facility] [address] [place] [address] 10 [facility] Severe Sepsis and Septic Shock Management Bundle Measure requires all lactic acids initially measuring >2.0 mmol/L be repeated. 11 Because ethnic data is not always readily available, this report includes an eGFR for both -Americans and non- Americans. The National Kidney Disease Education Program (NKDEP) does not endorse the use of the MDRD equation for patients that are not between the ages of 18 and 70, are , have extremes of body size, muscle mass, or nutritional status, or are non- or non-. According to the National Kidney Foundation, irrespective of diagnosis, the stage of the disease is based on the level of kidney function: Stage Description GFR(mL/min/1.73 m(2)) 1 Kidney damage with normal or decreased GFR 90 2 Kidney damage with mild decrease in GFR 60-89 3 Moderate decrease in GFR 30-59 4 Severe decrease in GFR 15-29 5 Kidney failure <15 (or dialysis) 12 REFERENCE VALUE <=1.0 (Negative) 13 REFERENCE VALUE <20.0 (Negative) 14 Tests for antibodies to dsDNA and DONNA antigens are not performed automatically unless the MADISON result is > or= 3.0 U. Studies performed at [facility] indicate that positive MADISON results <3.0 U are rarely accompanied by positive second order tests. Test Performed by: [facility] - [facility] [address] [place] [address] 15 No evidence of antibodies to B. burgdorferi detected. False negative results may occur in recently infected patients (<=2 weeks) due to low or undetectable antibody levels to B. burgdorferi. If recent exposure is suspected, a second sample should be collected and tested in 2-4 weeks. Test Performed by: [facility] [address] [place] [address] 16 ADDITIONAL INFORMATION This test was developed and its performance characteristics determined by [facility] in a manner consistent with CLIA requirements. This test has not been cleared or approved by the U.S. Food and Drug Administration. Test Performed by: [facility] [address] [place] [address] 17 SEE RESULT BELOW Name: BLANCA DE PAZ : [address]: Smitha Montoya NP Acct: [id number] Unit: [id number] AGE: 42 Location: [facility] Re12/18/17 SEX: F Status: REG REF SPEC: [id number] AMANDA: 12/18/[address]: Smitha Montoya NP REQ: [id number] RECD: 12/18/17 STATUS: SOUT _ ORDERED: TP IMAGE ANAL, HPV/Thin Prep COMMENTS: [id number] Negative for Intraepithelial lesion or Malignancy A. Ectocervical/Endocervical Specimen Adequacy: Satisfactory of evaluation Transformation zone component not identified Patient Information: HPV: High risk HPV RNA testing regardless of pap results. Actual Specimen Date: 12/18/17 ?: N Post Menopausal?: Y Hysterectomy?: Y Previous Abnormal Pap Smears?:N Date Time Test Result Flag (u) Normal Range 12/18/17 0938 @ HPV RNA Negative Negative @ @ The high-risk HPV types detected by the assay include: 16, @ 18, 31, 33, 35, 39, 45, 51, 52, 56, 58, 59, 66, and 68. Signed (signature on file) MARCELLE Moulton(ASCP) 12/19 1258 This Pap test was evaluated with the assistance of the [employer] Test Imaging System. Due to cytologic findings at the head sulfide operator microscope, comprehensive manual rescreening by a Moving Picture Producer may be required. The Pap Smear is a screening test designed to aid in the detection of premalignant and malignant conditions of the uterine cervix. It is not a diagnostic procedure and should not be used as the sole means of detecting cervical cancer. Both false- positive and false- negative reports do occur. Depending on your risk status, a Pap smear should be obtained and evaluated every 1-3 years. END OF REPORT * ML=Testing performed at Main Lab DEPARTMENT OF PATHOLOGY, [address] [place] [address] Khanh Carranza M.D. Director [facility] # [id number] 18 ADDITIONAL INFORMATION This test was developed and its performance characteristics determined by [facility] in a manner consistent with CLIA requirements. This test has not been cleared or approved by the U.S. Food and Drug Administration. Test Performed by: [facility] - [facility] [address] [place] [address] 19 Because ethnic data is not always readily available, this report includes an eGFR for both -Americans and non- Americans. The National Kidney Disease Education Program (NKDEP) does not endorse the use of the MDRD equation for patients that are not between the ages of 18 and 70, are , have extremes of body size, muscle mass, or nutritional status, or are non- or non-. According to the National Kidney Foundation, irrespective of diagnosis, the stage of the disease is based on the level of kidney function: Stage Description GFR(mL/min/1.73 m(2)) 1 Kidney damage with normal or decreased GFR 90 2 Kidney damage with mild decrease in GFR 60-89 3 Moderate decrease in GFR 30-59 4 Severe decrease in GFR 15-29 5 Kidney failure <15 (or dialysis) 20 Desirable: <150 Borderline High: 150-199 High: 200-499 Very High: >500 21 Desirable: <200 Borderline High: 200-239 High: >239 22 Low: <40 Desirable: 40-60 High: >60 23 Desirable: <100 Near Optimal: 100-129 Borderline High: 130-159 High: 160-189 Very High: >189 24 Unable to calculate due to low microalbumin 25 Therapeutic target for the treatment of diabetes mellitus patients is <7% HBA1C, and in selective patients <6.0%. Please refer to [place] [employer] diabetic care guidelines for further information. 26 FASTING 10 HOUR Copy Result to: ENOCH ESQUIVEL ([id number]) 27 Normal Range 180 to 914 Indeterminate Range 145 to 180 Deficient Range <145 Procedures Date Code Description Status 01/15/2019 700470666 Diabetic Retinal Eye Exam Completed 12/26/2018 [id number] Mammogram Completed 12/02/2018 67479 Carpal Tunnel Release Completed 12/02/2018 17807 Carpal Tunnel Release Completed 12/02/2018 34808 Trigger Finger Release Incision / Tendon Sheath Completed Incision 12/02/2018 14927 Trigger Finger Release Incision / Tendon Sheath Completed Incision 05/30/2018 [id number] Diabetic Retinal Eye Exam Completed 05/08/2018 43750 Inject Tendon Sheath Or Ligament Aponeurosis Eg Completed Plantar Fascia 02/03/2018 96616 Allergy Test, Patch Or Application Completed 12/18/2017 65624 EKG Tracing & Interpretation Completed 08/28/2017 09035 EEG Recording Awake & Drowsy Completed Encounters Type Date Location Provider Dx Diagnosis Office Visit 04/02/2019 [facility] Trigger finger, 9:30a Juancho Mosher M.D. right middle finger Office Visit 01/12/2019 [facility], E10.40 Type 1 diabetes 8:20a [facility] RPA-C mellitus with diabetic neuropathy, unsp Office Visit 12/31/2018 [facility] Romero, G47.419 Narcolepsy 10:45a Clinic MD without cataplexy G40.909 Epilepsy, unsp, not intractable, without status epilepticus Office Visit 12/24/2018 8:40a [facility] Internal Zsofia Jan, Z00.00 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 medical exam w/o abnormal findings E10.40 Type 1 diabetes mellitus with diabetic neuropathy, unsp G47.419 Narcolepsy without cataplexy G40.909 Epilepsy, unsp, not intractable, without status epilepticus Z12.31 En[facility] screen mammogram for malignant neoplasm of breast Z13.220 Encounter for screening for lipoid disorders Z80.6 Family history of leukemia Office Visit 11/13/2018 8:00a [facility] Mosher M65.331 [facility] finger, right C.M.A. 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, right middle RPA-C finger Office Visit 05/06/2018 [facility] Elvin G47.419 Narcolepsy 9:45a Clinic MD Heather without cataplexy G40.909 Epilepsy, unsp, not intractable, without status epilepticus Z79.899 Other bumboater (current) drug therapy Office Visit 02/07/2018 8:00a [facility] Dermatology Castillo Osorio, L23.9 Allergic contact MD dermatitis, unspecified cause Office Visit 02/05/2018 8:10a [facility] Dermatology Castillo Yentzer, L23.9 Allergic contact MD dermatitis, unspecified cause Office Visit 01/15/2018 8:30a [facility] Dermatology Castillo Yentzer, L23.9 Allergic contact MD dermatitis, unspecified cause L71.0 Perioral dermatitis D22.62 Melanocytic nevi of left upper limb, including shoulder Office Visit 12/18/2017 8:00a [facility] Internal Zsofia Jan, Z00.00 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 medical 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 w/o abnormal findings E10.40 Type 1 diabetes mellitus with diabetic neuropathy, unsp Z12.31 Encntr screen mammogram for malignant neoplasm of breast Z12.4 Encounter for screening for malignant neoplasm of cervix Z12.83 Encounter for screening for malignant neoplasm of skin Z23 Encounter for immunization E10.9 Type 1 diabetes mellitus without complications Office Visit 11/05/2017 [facility] G47.419 Narcolepsy 9:30a Clinic MD Heather without cataplexy G40.209 Local-rel symptc epi w cmplx prt seiz,not ntrct,w/o stat epi Q07.00 Arnold-Chiari syndrome without spina bifida or hydrocephalus Office Visit 08/05/2017 [facility] G47.419 Narcolepsy 10:15a Clinic MD Heather without cataplexy G40.209 Local-rel symptc epi w cmplx prt seiz,not ntrct,w/o stat epi Q07.00 Arnold-Chiari syndrome without spina bifida or hydrocephalus M25.511 Pain in right shoulder Office Visit 07/12/2017 1:00p [facility] Internal Leoncio Jacobs E10.40 Type 1 diabetes Le Amaya M.D.,FACP mellitus with Suite R diabetic neuropathy, unsp G47.419 Narcolepsy without cataplexy G40.209 Local-rel symptc epi w cmplx prt seiz,not ntrct,w/o stat epi Z12.31 Encntr screen mammogram for malignant neoplasm of breast J45.40 Moderate persistent asthma, uncomplicated Z23 Encounter for immunization Office Visit 06/10/2017 [facility] G40.209 Local-rel 10:30a [facility] w [facility]x prt seiz,not ntrct,w/o stat epi G47.419 Narcolepsy without cataplexy Z79.899 Other half-way (current) drug therapy Plan of Treatment Future Appointment(s):07/10/2019 8:00 am - URBAN Casillas at [place] [facility]10/02/2019 9:15 am - Elvin Romero MD at [facility] Zspapu2104/08/2019 - Smitha Montoya, FNPK31.84 GastroparesisNew Xrays:US Abdomen Limited, Ordered: 04/08/19Comments:The following are symptoms of gastroparesis:Tx:Eat smaller meals more frequentlyChew food thoroughlyEat well-cooked fruits and vegetables rather than raw fruits and vegetablesAvoid fibrous fruits and vegetables, such as oranges and broccoli, which may cause bezoarsChoose mostly low-fat foods, but if you can tolerate them, add small servings of fatty foods to your dietTry soups and pureed foods if liquids are easier for you to swallowDrink about 34 to 51 ounces (1 to 1.5 liters) of water a dayExercise gently after you eat, such as going for a walkAvoid carbonated drinks, alcohol and smokingTry to avoid lying down for 2 hours after a mealFollow up:call if no improvement in 4 week so and sen referral to gastro
--- OUTSIDE RECORDS SUMMARY | 2019-04-15 12:55 | XMS REPORT | Continuity of Care Document ---
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 [employer] Tobacco Use Start: Unknown End: Former Cigarette Unknown Smoker Smoking Status Reviewed: 04/02/19 Former Cigarette Smoker ETOH Use Drinks 4 [...] twice a day Tablets ER 24HR Calcium 500 + D3 2 tabs by mouth Unknown every day [id number] Tablets Vitamin B12 1 by mouth every Unknown 1000mcg day Tablets ER Aspirin 81 Low Dose 1 by mouth every Unknown day 81mg Chewtabs Armodafinil take 1 tablet by 90tabs Elvin Romero MD 150mg mouth every day Tablets code e Clonazepam 1 by mouth as Unknown 0.5mg needed for sleep Tablets Novolog Insulin pump Unknown 100Unit/ML Solution Vitamin D2 take 2 capsule Unknown (Ergocalciferol) by mouth once a [...] 07/12/2017 - 100mcg/Act Aerosol every day 40 [place], 12/17/2017 Mike,FACP Lamotrigine 2 in at night [...] Unknown - 5000Units Capsules every day 12/31/2017 Medications Administered in Office Medication SIG Qnty Indications Ordering Provider Date Depomedrol 40MG URBAN Benson 05/08/2018 Injection Immunizations CPT Code Status Date Vaccine Reaction Lot # [id number] Given 12/18/2017 Pneumococcal Conjugate [id number] Vaccine 13 Valent For Intramuscular Use 15469 Given 07/12/2017 Influenza Virus Vaccine, no immediate reaction, [id number] Quadrivalent, Split, pt tolerated well Preservative Free 11456 Given 04/07/2015 Pneumonia Vaccine Vital Signs Date Vital Result Comment 04/02/2019 9:37am Height 72 inches 6'0" Weight [...] H/L Range Note Comp Metabolic Panel 01/15/2019 [facility] Sodium 139 mmol/L N 135-[address] [place] [address] [phone] Potassium 4.5 mmol/L N 3.5-5.0 Chloride 102 [...] Egfr 104.8 >60 1 Lipid Profile 01/15/2019 [facility] Triglycerides 56 mg/dL 2 (Trig/Chol/HDL) [address] [place] [address] [phone] Cholesterol 180 mg/dL 3 HDL Cholesterol 60.0 mg/dL 4 LDL Cholesterol 109 mg/dL 5 CBC Auto Diff 01/15/2019 [facility] White Blood 7.6 10^3/uL N 3.5-10.[address] [place] [address] [phone] Red Blood Count 4.51 10^6/uL N 3.70-4.87 [...] Cells % 0 Laboratory test finding 01/12/2019 P[employer] Fin[employer] Super[facility] In House Glucose Random 182 Hemoglobin A1c 6.9 5-7 Laboratory test 12/02/2018 [facility] Point of Care 192 mg/dL High 70-100 [address] [place] [address] [phone] Laboratory test 12/02/2018 [facility] Point of Care 223 mg/dL High 70-100 [address] [place] [address] [phone] Laboratory test 12/02/2018 [facility] Point of Care 234 mg/dL High 70-100 [address] [place] [address] [phone] Laboratory test 11/28/2018 [facility] Lamotrigine 9.6 2.5 - 15.0 [address] (Lamictal) g/[place] [address] [phone] Laboratory test 10/09/2018 [employer] [facility] In House Glucose Random 224 finding Hemoglobin A1c 6.8 5-7 Laboratory test 05/24/2018 [facility] C Reactive < 1.00 mg/L N <8.[address] [place] [address] [phone] Troponin-I (TnI) 0.01 ng/mL <0.04 Lactic Acid 1.0 mmol/L N 0.5-2.0 10 Comp Metabolic Panel 05/24/2018 [facility] Sodium 135 mmol/L N 135-[address] [place] [address] [phone] Potassium 3.7 mmol/L N 3.5-5.0 Chloride 100 [...] >60 Egfr 116.2 >60 11 Inr/Protime 05/24/2018 [facility] Inr 0.94 N 0.77-1.[address] [place] [address] [phone] CBC Auto Diff 05/24/2018 [facility] White Blood 8.2 10^3/uL N 3.5-10.[address] [place] [address] [phone] Red Blood Count 4.26 10^6/uL N 4.00-5.40 [...] Blood Cells % 0 Arthritis Panel 05/08/2018 [facility] Uric Acid 3.1 mg/dL N 2.3-6[place] [place] [address] [phone] Rheumatoid Factor < 10 IU/mL N <15 Erythrocyte Sed Rate 12 mm/Hr N 0-14 Anti-Nuclear Antibody 0.2 U 12 Cyclic Citrullinated Peptide <15.6 U 13 Interpretation See Comment 14 Laboratory test 05/08/2018 [facility] Lyme Disease Negative Negative [address] [place] [address] [phone] Laboratory test 05/06/2018 [facility] TSH (Thyroid 0.97 mcIU/mL N 0.34-5.[address] Stim [place]orm) [place] [address] [phone] Free T4 (Free Thyroxine) 1.00 ng/dL N 0.61-1.12 Laboratory test 05/06/2018 [facility] Lamotrigine 10.9 g/mL 2.5 - [address] (Lamictal) 15.0 [place] [address] [phone] Laboratory test 12/18/2017 [facility] Cytology SEE RESULT [address] [place] [address] [phone] Laboratory test 08/22/2017 [facility] Lamotrigine 10.2 g/mL N 2.5 - [address] (Lamictal) 15.0 [place], [place] [id number] [phone] Comp Metabolic 08/22/2017 [facility] Sodium 136 mmol/L N 133- [address] [place] [address] [phone] Potassium 4.3 mmol/L N 3.5-5.0 Chloride 102 [...] 110.2 N >60 19 Lipid Profile 08/22/2017 [facility] Triglycerides 69 mg/dL N 20 (Trig/Chol/HDL) [address] [place] [address] [phone] Cholesterol 151 mg/dL N 21 HDL Cholesterol 44.3 mg/dL N 22 LDL Cholesterol 93 mg/dL N 23 Urine Microalbumin 08/22/2017 [facility] Ur Microalbumin < 15.[address] (mg/L) mg/[place] [address] [phone] Urine Creatinine 221.12 mg/dL N Urine Microalbumin/Creatinine TNP ug/mg N <31 24 Laboratory test 08/22/2017 [facility] Hemoglobin A1c 7.0 % High 4.0-5.[address] (Glyco HGB) [place] [address] [phone] Vitamin D Total 25(Oh) 55.7 ng/mL High [...] 130-159 High: 160-189 Very High: >189 6 Silo Worker: [id number] 7 Silo Worker: [id number] 8 Silo Worker: [id number] 9 ADDITIONAL INFORMATION This test was developed and its performance characteristics determined by [facility] in a manner consistent with CLIA requirements. This test has not been cleared or approved by the U.S. Food and Drug Administration. Test Performed by: [facility] [address] [place] [address] 10 MDS Severe Sepsis and Septic Shock Management Bundle [...] > or= 3.0 U. Studies performed at [facility] indicate that positive MADISON results <3.0 U are rarely accompanied by positive second order tests. Test Performed by: [facility] [place] [address] 15 No evidence of antibodies to B. burgdorferi detected. False negative results may occur in recently infected patients (<=2 weeks) due to low or undetectable antibody levels to B. burgdorferi. If recent exposure is suspected, a second sample should be collected and tested in 2-4 weeks. Test Performed by: [facility] [place] [address] 16 ADDITIONAL INFORMATION This test was developed and its performance characteristics determined by [facility] in a manner consistent with CLIA requirements. This test has not been cleared or approved by the U.S. Food and Drug Administration. Test Performed by: [facility] [place] [address] 17 SEE RESULT BELOW Name: BLANCA DE PAZ : [address]: Smitha Montoya NP Acct: [id number] Unit: [id number] AGE: 42 Location: [facility] Re12/18/17 SEX: F Status: REG REF SPEC: [id number] AMANDA: 12/18/[address]: Smitha Montoya NP REQ: [id number] RECD: 12/18/17 STATUS: SOUT _ ORDERED: TP IMAGE ANAL, HPV/Thin Prep COMMENTS: [id number] Negative for Intraepithelial lesion or Malignancy A. Ectocervical/Endocervical Specimen Adequacy: Satisfactory of evaluation Transformation zone component not identified Patient Information: HPV: High risk HPV RNA testing regardless of pap results. Actual Specimen Date: 12/18/17 ?: N Post Menopausal?: Y Hysterectomy?: Y Previous Abnormal Pap Smears?:N Date Time Test Result Flag (u) Normal Range 12/18/17 0985 @ HPV RNA Negative Negative @ @ The high-risk HPV types detected by the assay include: 16, @ 18, 31, 33, 35, 39, 45, 51, 52, 56, 58, 59, 66, and 68. Signed (signature on file) MARCELLE Moulton(ASCP) 12/19 1258 This Pap test was evaluated with the assistance of the [employer] Test Imaging System. Due to cytologic findings at the intake manager microscope, comprehensive manual rescreening by a Outside Sales may be required. The Pap Smear is [...] performed at Main Lab DEPARTMENT OF PATHOLOGY, [address] [place] [address] Khanh Carranza M.D. Director [facility] # [id number] 18 ADDITIONAL INFORMATION This test was developed and its performance characteristics determined by [facility] in a manner consistent with CLIA requirements. This test has not been cleared or approved by the U.S. Food and Drug Administration. Test Performed by: [facility] [address], [place] [address] 19 Because ethnic data is not always [...] in selective patients <6.0%. Please refer to [place] [employer] diabetic care guidelines for further information. 26 FASTING 10 HOUR Copy Result to: ENOCH ESQUIVEL ([id number]) 27 Normal Range 180 to 914 Indeterminate Range 145 to 180 Deficient Range <145 Procedures Date Code Description Status 12/26/2018 21417042 Mammogram Completed 12/02/2018 99987 Carpal Tunnel Release Completed 12/02/2018 74378 Carpal Tunnel Release Completed 12/02/2018 18211 Trigger Finger Release Incision / Tendon Sheath Completed Incision 12/02/2018 94237 Trigger Finger Release Incision / Tendon Sheath Completed Incision 05/30/2018 [id number] Diabetic Retinal Eye Exam Completed 05/08/2018 34998 Inject Tendon Sheath Or Ligament Aponeurosis Eg Completed Plantar Fascia 02/03/2018 32573 Allergy Test, Patch Or Application Completed 12/18/2017 02895 EKG Tracing & Interpretation Completed 08/28/2017 76990 EEG Recording Awake & Drowsy Completed Encounters Type Date Location Provider Dx Diagnosis Office Visit 01/12/2019 [facility] E10.40 Type 1 diabetes 8:20a Endocrinology of Pipe Finishing Supervisor Marker, RPA-C mellitus with diabetic neuropathy, unsp Office Visit 12/31/2018 [facility] Elvin Romero, G47.419 Narcolepsy 10:45a MD without cataplexy G40.909 Epilepsy, unsp, not intractable, without status epilepticus Office Visit 12/24/2018 8:40a [facility] Internal Zsofia Jan, Z00.00 Encntr for Medicine - Suite 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, right middle RPA-C finger Office Visit 05/06/2018 [facility] Elvin G47.419 Narcolepsy 9:45a Clinic MD Heather without cataplexy G40.909 Epilepsy, unsp, not intractable, without status epilepticus Z79.899 Other repack room worker (current) drug therapy Office Visit 02/07/2018 8:00a [facility] Dermatology Castillo Osorio, L23.9 Allergic contact dermatitis, unspecified cause Office Visit 02/05/2018 8:10a [facility] Dermatology Castillo Osorio, L23.9 Allergic contact MD dermatitis, unspecified cause Office Visit 01/15/2018 8:30a [facility] Dermatology Castillo Osorio, L23.9 Allergic contact dermatitis, unspecified cause L71.0 Perioral dermatitis D22.62 Melanocytic nevi of left upper limb, including shoulder Office Visit 12/18/2017 8:00a [facility] Internal Smitha Montoya, Z00.00 Encntr for Medicine - Suite FORM GRADER OPERATOR general adult R medical exam w/o abnormal [...] in right shoulder Office Visit 07/12/2017 1:00p [facility] Internal Leoncio Jacobs E10.40 Type 1 diabetes Le Mike Amaya,FACP mellitus with Suite R diabetic neuropathy, unsp G47.419 Narcolepsy without cataplexy G40.209 Local-rel symptc epi w cmplx prt seiz,not ntrct,w/o stat epi Z12.31 Encntr screen mammogram for malignant neoplasm of breast J45.40 Moderate persistent asthma, uncomplicated Z23 Encounter for immunization Office Visit 06/10/2017 [facility] G40.209 Local-rel 10:30a Clinic MD Heather symptc epi w cmplx prt seiz,not ntrct,w/o stat epi G47.419 Narcolepsy without cataplexy Z79.899 Other repack room worker (current) drug therapy Plan of Treatment Future Appointment(s):04/08/2019 8:00 am - CHER Li at [facility] Internal Medicine - [facility]07/10/2019 8:00 am - URBAN Casillas at [place] [facility]10/02/2019 9:15 am - Elvin Romero MD at [facility] Rxlboc8104/02/2019 - Carmen Mosher M.D.M65.331 Trigger finger , right middle fingerNew Xrays:Finger Right Middle, Ordered: 04/02/19Follow up: Follow up: As needed
[2019-04-15 13:05] VITALS: BP 104/67
--- NOTE | 2019-04-15 13:46 | UC ---
Back Pain HPI - HPI Summary HPI Summary: 43-YEAR-OLD FEMALE comes in with a chief complaint of low back pain. Started yesterday when she was leaning forward. Pains in the low back near the sacrum going off of the left buttock. Does not go down the leg no weakness no numbness or difficulty controlling urine or bowels. Pain is worse with twisting turning bending. No change in bowel or bladder. She's taken some Aleve with no relief. Noticed bruising at the site of the pain. - History of Current Complaint Chief Complaint: UCBackPain Stated Complaint: LOWER LT BACK PAIN Time Seen by Provider: 04/15/19 13:29 Pain Intensity: 6 - Allergies/Home Medications Allergies/Adverse Reactions: Allergies Allergy/AdvReac Type Severity Reaction Status Date / Time No Known Allergies Allergy Verified 04/15/19 13:05 Home Medications: Home Medications Calcium Carb, Citrate/Vit D3 [Calcium+D3 Gradual Releas] 1 tab PO 04/15/19 [ History] Vitamin B Complex TAB* [B Complex-50*] 1 tab PO DAILY 04/15/19 [History Confirmed 04/15/19] PMH/Surg Hx/FS Hx/Imm Hx Previously Healthy: Yes Endocrine History: Diabetes - Surgical History Surgical History: Yes Surgery Procedure, Year, and Place: HYSTERECTOMY - Family History Known Family History: Positive: Diabetes, Other Negative: Hypertension Family History: Pancreatic CA, Ovarian CA, Breast CA - Social History Alcohol Use: Weekly Alcohol Amount: socially Substance Use Type: None Smoking Status (MU): Former Smoker When Did the Patient Quit Smoking/Using Tobacco: 5years ago approx Review of Systems All Other Systems Reviewed And Are Negative: Yes Constitutional: Positive: Negative Skin: Positive: Bruising - SEE HPI Eyes: Positive: Negative ENT: Positive: Negative Respiratory: Positive: Negative Cardiovascular: Positive: Negative Gastrointestinal: Positive: Negative Genitourinary: Positive: Negative Motor: Positive: Negative Neurovascular: Positive: Negative Musculoskeletal: Positive: Other: - see hpi Neurological: Positive: Negative Psychological: Positive: Negative Is Patient Immunocompromised?: No Physical Exam Triage Information Reviewed: Yes Appearance: Well-Appearing, Well-Nourished, Pain Distress - mild with rom of low back Vital Signs: Initial Vital Signs Temp 99.3 F 04/15/19 13:00 Pulse 83 04/15/19 13:00 Resp 18 04/15/19 13:00 BP 104/67 04/15/19 13:00 Pulse Ox 99 04/15/19 13:00 Vital Signs Reviewed: Yes Eye Exam: Normal Eyes: Positive: Conjunctiva Clear Neck exam: Normal Neck: Positive: Supple Respiratory: Positive: No respiratory distress Musculoskeletal: Positive: Strength Intact, ROM Intact, Other: - Mild tenderness to palpation left side of lower back. LE from with full strength. Neurological: Positive: Alert, Muscle Tone Normal Psychological Exam: Normal Psychological: Positive: Normal Response To Family, Age Appropriate Behavior Skin: Positive: Other - eccymosis left upper gluteal cleft 2cm diameter Back Pain Course/Dx - Differential Dx/Diagnosis Provider Diagnosis: Low back pain Discharge - Sign-Out/Discharge Documenting (check all that apply): Patient Departure All imaging exams completed and their final reports reviewed: No Studies - Discharge Plan Condition: Stable Disposition: HOME Prescriptions: Cyclobenzaprine TAB* [Flexeril 10 MG TAB*] 10 mg PO TID PRN #15 tab PRN Reason: Pain Patient Education Materials: Acute Low Back Pain (ED), Lower Back Exercises (ED ) Referrals: Smitha Montoya NP [Primary Care Provider] - Additional Instructions: FOLLOW UP WITH YOUR DOCTOR IF NOT COMPLETELY IMPROVED. GET RECHECKED SOONER IF YOUR CONDITION WORSENS; PAIN, WEAKNESS, NUMBNESS, DIFFICULTY CONTROLLING BOWEL OR BLADDER OR ANY QUESTIONS OR CONCERNS. - Billing Disposition and Condition Condition: STABLE Disposition: Home
== END 2019-04-15 13:56 | disposition home or self-care (01) ==
LOC: UCEAST 12:39
DX: M54.5 Low back pain (principal); Z87.891 Personal history of nicotine dependence
CPT/HCPCS: 99212; G0463